=== PATIENT | female | born 1955 | race African-American/Black ===

== ENCOUNTER 2016-12-28 05:07 | Inpatient (IN) | payer BC ==
[~2016-12-28 05:07] MED LIST: ANTIVERT12.5 MG PO; ASPIRIN81 M1 PO; BP MED; CALCIUM CITRATE PO; CLARITIN10 MG; CLEOCIN150 MG/CAP PO; CLONAZEPAM0.5 MG; CLONAZEPAM1 MG PO; COMBIVENT1 PUFF INH; DELTASONE10 MG; DIET PILL; FOLIC ACID1 M1 PO; KLONOPIN1 MG PO; LEVAQUIN500 MG PO; LEVAQUIN750 MG PO; MELOXICAM15 MG PO; METHOTREXATE2.5 M1 PO; MUCINEX600 MG PO; MYCELEX10 MG PO; NORCO 5/325 TAB1 TAB PO; NORCO 5/3251 TA1 PO; NORVASC10 M2 PO; NORVASC5 M1 PO; NORVASC5 MG PO; NUCYNTA50 MG PO; OMEPRAZOLE20 M2 PO; PEPCID20 MG PO; PERCOCET 5/3251 TAB PO; PLAQUENIL200 M1 PO; PREDNISONE; PREDNISONE10 MG PO; PREDNISONE20 MG; PRILOSEC OTC20 M1 PO; PROVENTIL HFA6.7 GM; QVAR80MCG INH; TYLENOL325 M1 PO; TYLENOL500 MG PO; VENTOLIN HFA18 G1 IH; VITAMIN B-121000 MC1 PO; VITAMIN D2000 UNI1 PO; XARELTO10 MG PO; [UNRECOGNIZED DRUG - OTHER] TOP
[2016-12-28 05:46] LABS: INR 0.9 INR (0.9-1.1); PROTHROMBIN TIME 10.6 SECONDS (9.0-13.6)
[2016-12-28] MEDS ORDERED: AMLODIPINE BESYL5 MG PO (17:34)
[2016-12-28] MEDS ORDERED: SYMBICORT 80-41 PUFF INH (17:34)
[2016-12-28] MEDS ORDERED: FLONASE ALLERG9.9 ML (17:35)
[2016-12-28] MEDS ORDERED: CYCLOBENZAPRINE10 M1 PO (17:35)
[2016-12-28] MEDS ORDERED: PROTONIX40 M2 PO (17:36)
[2016-12-28] MEDS ORDERED: VENTOLIN HFA18 G2 PO (17:38)
[2016-12-28] MEDS ORDERED: LIPITOR20 M1 PO (17:38)
[2016-12-28] MEDS ORDERED: KLONOPIN1 M1 PO (17:39)
[2016-12-28] MEDS ORDERED: CONTRAVE ER 8-1 EACH PO (17:41)
[2016-12-29 06:36] LABS: BASO % 0.4 % (0-2); EOS % 2.2 % (0-7); EOSINOPHIL ABSOLUTE COUNT 0.1 tho/cmm (0.0-0.7); HCT-HEMATOCRIT 32.9 % (34.0-49.0); HGB-HEMOGLOBIN 10.5 gm/dl (12.0-15.5); IMMATURE GRANULOCYTES ABSOLUTE 0.05 tho/cmm (0-0.03); LYMPH ABSOLUTE COUNT 1.3 tho/cmm (0.8-4.5); MCH (MEAN CORPUSCULAR HGB) 30.5 pg (28.0-32.0); MCHC MEAN CORPUSCULAR HGB CONC 31.9 % (32.0-36.0); MCV (MEAN CELL VOLUME) 95.6 fl (82.0-96.0); MEAN PLATELET VOLUME 9.7 cmc (9.4-12.4); MONO % 7.5 % (0-12); MONOCYTE ABSOLUTE COUNT 0.4 tho/cmm (0.0-1.2); NEUTROPHIL ABSOLUTE COUNT 3.1 tho/cmm (1.6-8.0); NEUTROPHIL-AUTOMATED 3.1 tho/cmm (1.6-8.0); NEUTROPHILS % 62.9 % (40-80); PLATELET COUNT 229 tho/cmm (150-450); RED BLOOD COUNT 3.44 mil/cmm (4.00-5.20); RED CELL DISTRIBUTION WIDTH 15.3 % (12.4-16.4)
[2016-12-30 08:08] LABS: ALB/GLOB RATIO 0.7 (0.8-2.0); ALKALINE PHOSPHATASE 91 U/L (33-138); ALT/SGPT 19 U/L (12-78); ANION GAP 11 mmol/L (0-20); AST/SGOT 21 U/L (10-40); BILIRUBIN,TOTAL 0.4 mg/dl (0-1.5); BLOOD UREA NITROGEN 7 mg/dl (6-24); CALCIUM 8.4 mg/dl (8.5-10.5); CARBON DIOXIDE-VENOUS 30 mmol/L (22-32); CHLORIDE 104 mmol/l (96-110); GLUCOSE 103 mg/dL (70-110); POTASSIUM 3.5 mmol/L (3.7-5.1); SODIUM 141 mmol/L (135-145); eGFR VALUE FOR BLACK >90 mL/Min
[2016-12-30 08:12] LABS: TSH-THYROID STIMULATING HORM. 0.07 uIU/ml (0.40-3.80)
[2016-12-31 05:49] LABS: BASO % 2.2 % (0-2); BASO ABSOLUTE COUNT 0.1 tho/cmm (0.0-0.2); EOSINOPHIL ABSOLUTE COUNT 0.1 tho/cmm (0.0-0.7); HCT-HEMATOCRIT 29.3 % (34.0-49.0); HGB-HEMOGLOBIN 9.3 gm/dl (12.0-15.5); IMMATURE GRANULOCYTES ABSOLUTE 0.21 tho/cmm (0-0.03); IMMATURE GRANULOCYTES PERCENT 3.8 % (0-0.3); LYMPH % 18.6 % (20-45); MCH (MEAN CORPUSCULAR HGB) 30.6 pg (28.0-32.0); MCHC MEAN CORPUSCULAR HGB CONC 31.7 % (32.0-36.0); MCV (MEAN CELL VOLUME) 96.4 fl (82.0-96.0); MEAN PLATELET VOLUME 9.8 cmc (9.4-12.4); MONO % 7.7 % (0-12); MONOCYTE ABSOLUTE COUNT 0.4 tho/cmm (0.0-1.2); NEUTROPHIL ABSOLUTE COUNT 3.7 tho/cmm (1.6-8.0); NEUTROPHIL-AUTOMATED 3.7 tho/cmm (1.6-8.0); NEUTROPHILS % 65.7 % (40-80); PLATELET COUNT 214 tho/cmm (150-450); RED BLOOD COUNT 3.04 mil/cmm (4.00-5.20); RED CELL DISTRIBUTION WIDTH 15.1 % (12.4-16.4); WHITE BLOOD COUNT 5.6 tho/cmm (4.0-10.0)
[2016-12-31 06:17] LABS: MAGNESIUM 1.5 mg/dl (1.8-2.6); POTASSIUM 3.8 mmol/L (3.7-5.1)
[2017-01-01 06:22] LABS: ANION GAP 11 mmol/L (0-20); BLOOD UREA NITROGEN 8 mg/dl (6-24); CALCIUM 8.4 mg/dl (8.5-10.5); CARBON DIOXIDE-VENOUS 32 mmol/L (22-32); CHLORIDE 100 mmol/l (96-110); GLUCOSE 103 mg/dL (70-110); POTASSIUM 3.5 mmol/L (3.7-5.1); SODIUM 139 mmol/L (135-145); eGFR VALUE FOR BLACK >90 mL/Min
[2017-01-02] MEDS ORDERED: ROXICODONE5 M2 PO (10:34)
[2017-01-02] MEDS ORDERED: ULTRAM50 M1 PO (10:34)
[2017-01-02] MEDS ORDERED: ASPIRIN325 M3 PO (10:36)
[2017-01-02] MEDS ORDERED: TYLENOL325 M2 PO (10:37)
[2017-01-02] MEDS ORDERED: SENOKOT-S TABL1 EACH PO (10:38)
== END 2017-01-02 13:59 | disposition home health service (06) | DRG 470 ==
LOC: SHSC 05:07 → ORE 06:45 → PACU 09:14 → 5EA 10:45
PROVIDERS: Internal Medicine; Registered Nurse; ADMIT Orthopaedic Surgery Sports Medicine
PROC: 0SRB04Z Replacement of Left Hip Joint with Ceramic on Polyethylene Synthetic Substitute, Open Approach (ICD-10-PCS; principal; 2016-12-28)
DX: M16.12 Unilateral primary osteoarthritis, left hip (principal); M32.9 Systemic lupus erythematosus, unspecified; D62 Acute posthemorrhagic anemia; I10 Essential (primary) hypertension; J44.9 Chronic obstructive pulmonary disease, unspecified; F41.9 Anxiety disorder, unspecified; R00.0 Tachycardia, unspecified; R09.02 Hypoxemia; Z79.82 Long term (current) use of aspirin; Z79.51 Long term (current) use of inhaled steroids; Z79.899 Other long term (current) drug therapy; Z88.0 Allergy status to penicillin
CPT/HCPCS: C1751; C1776; C8929; J0171; J1885; J2270; J2405; J2795; J3475; J7050; Q9967